=== PATIENT | female | born 1935 | race Caucasian/White ===

== ENCOUNTER 2024-04-05 17:06 | Inpatient (IN) | payer MEDICARE, OTHER ==
[~2024-04-05] VITALS: Ht 149.9 cm; Wt 49.9 kg
[2024-04-05 17:10] VITALS: BP 165/52; PULSE 96; RESP 40; TEMP 99; O2SAT 99
[2024-04-05 17:52] LABS: HEMATOCRIT 36.1 % (36-48); HEMOGLOBIN 11.8 g/dL (12.0-16.0); MEAN CORPUSCULAR HEMOGLOBIN 28 pg (27-31); MEAN CORPUSCULAR HGB CONC 33 g/dL (33-37); MEAN CORPUSCULAR VOLUME 85.9 fL (80-94); PLATELET COUNT (AUTO) 171 K/uL (140-450); WHITE BLOOD COUNT (AUTO) 17.7 K/uL (4.8-10.8)
[2024-04-05 18:05] LABS: ANION GAP 15.4 (8-16); CARBON DIOXIDE 23.9 mmol/L (21-32); CHLORIDE 96 mmol/L (98-107); CREATININE 1.4 mg/dL (0.6-1.3); GLUCOSE 305 mg/dL (74-106); POTASSIUM 3.3 mmol/L (3.5-5.1); SODIUM SERUM 132 mmol/L (136-145); UREA NITROGEN, BLOOD 34 mg/dL (7-18)
[2024-04-05 18:12] LABS: ALANINE AMINOTRANSFERASE 16 U/L (12-78); ALBUMIN 2.7 g/dL (3.4-5.0); ALKALINE PHOSPHATASE 111 U/L (50-136); ASPARTATE AMINOTRANSFERASE 32 U/L (15-37); BILIRUBIN,DIRECT 0.3 mg/dL (0.0-0.3); TOTAL BILIRUBIN 0.8 mg/dL (0.0-1.0); TOTAL PROTEIN, SERUM 7.9 g/dL (6.4-8.2)
[2024-04-05 18:13] LABS: LACTIC ACID 3.6 mmol/L (0.4-2.0)
[2024-04-05 18:20] LABS: FLU A ANTIGEN negative (NEGATIVE); FLU B ANTIGEN NEGATIVE (NEGATIVE); RSV NEGATIVE (NEGATIVE)
[2024-04-05 18:31] LABS: LYMPHOCYTES % (MANUAL) 6 % (20-46); MONOCYTES % (MANUAL) 6 % (5-12)
[2024-04-05 18:32] LABS: PLATELET ESTIMATE ADEQUATE
[2024-04-05 18:43] VITALS: PULSE 88; O2SAT 94
[2024-04-05] MEDS ORDERED: cefTRIAXone 1,000 MG VIAL ONE (19:15)
[2024-04-05] MEDS: AZITHROMYCIN 500 MG in DEXTROSE 5% 250 ML IV ONE (19:50)
[2024-04-05] MEDS ORDERED: AZITHROMYCIN 500 MG INJ VIAL IV ONE (19:53)
[2024-04-05] MEDS ORDERED: FUROSEMIDE 40 MG/4 ML VIAL IVP ONE (19:57)
[2024-04-05] MEDS: FUROSEMIDE 40 MG/4 ML VIAL IVP ONE (19:58)
[2024-04-05 20:24] VITALS: PULSE 74; O2SAT 98
[2024-04-05] MEDS ORDERED: ZOLPIDEM 5 MG TAB PO PRN (20:35)
[2024-04-05] MEDS ORDERED: ONDANSETRON 4 MG/2 ML VIAL IVP PRN (20:35)
[2024-04-05] MEDS ORDERED: AMLO1CAP PO (22:07)
[2024-04-05] MEDS ORDERED: METO25TE2 PO (22:07)
[2024-04-05] MEDS ORDERED: ATOR10TA PO (22:07)
[2024-04-05] MEDS ORDERED: LOSA25TA32 PO (22:07)
[2024-04-05] MEDS ORDERED: FURO-572 PO (22:07)
[2024-04-05] MEDS ORDERED: APIX5TAB PO (22:07)
[2024-04-05] MEDS ORDERED: MEMA10TA22 PO (22:07)
[2024-04-05 22:39] VITALS: PULSE 70
[2024-04-05 23:00] VITALS: BP 140/65; PULSE 70; RESP 26; RESP 28; TEMP 98.1; O2SAT 98
[2024-04-05 23:55] VITALS: PULSE 69
[2024-04-06] VITALS (8 sets, daily range): BP systolic 142–151; BP diastolic 46–74; PULSE 67–91; RESP 15–22; TEMP 98–98.5; O2SAT 95–100
[2024-04-06] MEDS: KCL 20 MEQ IN 100 mL PREMIX 100 ML IV ONE (00:56)
[2024-04-06 07:09] LABS: BASOPHILS % (AUTO) 0.1 % (0.0-2.0); EOSINOPHILS % (AUTO) 0.4 % (0.0-4.0); HEMATOCRIT 29.5 % (36-48); HEMOGLOBIN 9.8 g/dL (12.0-16.0); LYMPHOCYTES # (AUTO) 0.8 K/uL (2.5-16.5); LYMPHOCYTES % (AUTO) 7.1 % (20.5-51.1); MEAN CORPUSCULAR HEMOGLOBIN 29 pg (27-31); MEAN CORPUSCULAR HGB CONC 33 g/dL (33-37); MONOCYTES % (AUTO) 8.2 % (1.7-9.3); NEUTROPHILS % (AUTO) 84.2 % (42.2-75.2); PLATELET COUNT (AUTO) 133 K/uL (140-450); RED BLOOD CELL COUNT(AUTO) 3.43 MIL/uL (4.20-5.40); RED CELL DISTRIBUTION WIDTH 15.4 % (11.6-13.7); WHITE BLOOD COUNT (AUTO) 11.9 K/uL (4.8-10.8)
[2024-04-06 08:07] LABS: ALANINE AMINOTRANSFERASE 16 U/L (12-78); ALKALINE PHOSPHATASE 78 U/L (50-136); ANION GAP 12.2 (8-16); ASPARTATE AMINOTRANSFERASE 20 U/L (15-37); CALCIUM 8.4 mg/dL (8.5-10.1); CARBON DIOXIDE 26.2 mmol/L (21-32); CHLORIDE 101 mmol/L (98-107); CREATININE 1.1 mg/dL (0.6-1.3); GLUCOSE 146 mg/dL (74-106); POTASSIUM 3.4 mmol/L (3.5-5.1); SODIUM SERUM 136 mmol/L (136-145); TOTAL BILIRUBIN 0.6 mg/dL (0.0-1.0); TOTAL PROTEIN, SERUM 6.3 g/dL (6.4-8.2); UREA NITROGEN, BLOOD 35 mg/dL (7-18)
[2024-04-06] MEDS: DOCUSATE SODIUM 100 MG GELCAP PO SCH (10:36)
[2024-04-06] MEDS: PANTOPRAZOLE 40 MG INJ VIAL IVP SCH (10:37)
[2024-04-06] MEDS: FUROSEMIDE 20 MG/2 ML VIAL IVP SCH (11:46)
[2024-04-06] MEDS: LOSARTAN 25 MG TAB PO SCH (11:47)
[2024-04-06] MEDS: amLODIPine 5 MG TAB PO SCH (11:47)
[2024-04-06] MEDS: ATORVASTATIN 20 MG TAB PO SCH (11:47)
[2024-04-06] MEDS ORDERED: PIPERACILLIN/TAZOBACTAM 3.375 GM in DEXTROSE 5% 50 ML IV SCH ×3 (12:00)
[2024-04-06] MEDS: LEVOFLOXACIN 500 MG/D5W PREMIX 100 ML IV SCH (13:19)
[2024-04-06] MEDS ORDERED: ONDANSETRON 4 MG/2 ML VIAL IVP PRN (15:05)
[2024-04-06] MEDS ORDERED: ALUMINUM HYD/MAG/SIMETHICONE 30 ML UDC PO PRN (15:05)
[2024-04-06] MEDS ORDERED: NITROGLYCERIN 0.4 MG TAB SL PRN (15:05)
[2024-04-06] MEDS ORDERED: MORPHINE SULFATE 2 MG/ML SYR IVP PRN (15:05)
[2024-04-06] MEDS ORDERED: DEXTROSE 50% 50 ML SYR IVP PRN (15:15)
[2024-04-06 16:00] LABS: CHOL/HDL RATIO 1.7 (1-4.5)
[2024-04-06] MEDS: BLOOD GLUCOSE MONITORING 1 DEV DEV FS SCH (16:32)
[2024-04-06] MEDS: ASPIRIN 81 MG TAB.CHEW PO SCH (16:41)
[2024-04-06] MEDS: INSULIN LISPRO SLIDING SCALE 100 UNITS/ML VIAL SUBQ PRN (16:45)
[2024-04-06] MEDS: MEMANTINE 10 MG TAB PO SCH (21:13)
[2024-04-06] MEDS: APIXABAN 2.5 MG TAB PO SCH (21:17)
[2024-04-06] MEDS: ZOLPIDEM 5 MG TAB PO PRN (22:30)
[2024-04-07] VITALS (11 sets, daily range): BP systolic 144–159; BP diastolic 60–71; PULSE 62–86; RESP 15–20; TEMP 97–98.3; O2SAT 93–100
[2024-04-07 07:21] LABS: BASOPHILS % (AUTO) 0.1 % (0.0-2.0); EOSINOPHILS % (AUTO) 0.2 % (0.0-4.0); HEMATOCRIT 29.3 % (36-48); HEMOGLOBIN 9.7 g/dL (12.0-16.0); LYMPHOCYTES % (AUTO) 7.7 % (20.5-51.1); MEAN CORPUSCULAR HEMOGLOBIN 28 pg (27-31); MEAN CORPUSCULAR HGB CONC 33 g/dL (33-37); MEAN CORPUSCULAR VOLUME 84.8 fL (80-94); MONOCYTES % (AUTO) 7.6 % (1.7-9.3); NEUTROPHILS # (AUTO) 11.3 K/uL (1.8-7.7); NEUTROPHILS % (AUTO) 84.4 % (42.2-75.2); PLATELET COUNT (AUTO) 168 K/uL (140-450); RED BLOOD CELL COUNT(AUTO) 3.45 MIL/uL (4.20-5.40); RED CELL DISTRIBUTION WIDTH 15.6 % (11.6-13.7); WHITE BLOOD COUNT (AUTO) 13.3 K/uL (4.8-10.8)
[2024-04-07 07:46] LABS: ALANINE AMINOTRANSFERASE 36 U/L (12-78); ALKALINE PHOSPHATASE 88 U/L (50-136); ANION GAP 10.7 (8-16); ASPARTATE AMINOTRANSFERASE 55 U/L (15-37); CALCIUM 8.7 mg/dL (8.5-10.1); CARBON DIOXIDE 28.7 mmol/L (21-32); CHLORIDE 103 mmol/L (98-107); CREATININE 1.1 mg/dL (0.6-1.3); GLUCOSE 194 mg/dL (74-106); POTASSIUM 3.4 mmol/L (3.5-5.1); SODIUM SERUM 139 mmol/L (136-145); TOTAL BILIRUBIN 0.7 mg/dL (0.0-1.0); TOTAL PROTEIN, SERUM 6.6 g/dL (6.4-8.2); UREA NITROGEN, BLOOD 28 mg/dL (7-18)
[2024-04-07] MEDS ORDERED: LOSARTAN 25 MG TAB PO SCH (09:00)
[2024-04-07] MEDS: DOCUSATE SODIUM 100 MG GELCAP PO SCH (09:52)
[2024-04-07] MEDS ORDERED: NYSTATIN POW 100 MU/GM 15 GM BTL TP PRN (11:45)
[2024-04-07] MEDS: LEVOFLOXACIN 250 MG/D5 PREMIX 50 ML IV SCH (12:35)
[2024-04-07] MEDS: NYSTATIN POW 100 MU/GM 15 GM BTL TP SCH (13:00)
[2024-04-08] VITALS (12 sets, daily range): BP systolic 123–179; BP diastolic 57–77; PULSE 69–96; RESP 20–22; TEMP 97.1–98.7; O2SAT 95–99
[2024-04-08 06:47] LABS: BASOPHILS % (AUTO) 0.3 % (0.0-2.0); EOSINOPHILS % (AUTO) 0.2 % (0.0-4.0); HEMATOCRIT 32.8 % (36-48); HEMOGLOBIN 10.9 g/dL (12.0-16.0); LYMPHOCYTES # (AUTO) 0.8 K/uL (2.5-16.5); MEAN CORPUSCULAR HEMOGLOBIN 28 pg (27-31); MEAN CORPUSCULAR HGB CONC 33 g/dL (33-37); MEAN CORPUSCULAR VOLUME 85.7 fL (80-94); MONOCYTES # (AUTO) 0.9 K/uL (0.8-1.0); MONOCYTES % (AUTO) 6.5 % (1.7-9.3); NEUTROPHILS # (AUTO) 11.9 K/uL (1.8-7.7); PLATELET COUNT (AUTO) 215 K/uL (140-450); RED BLOOD CELL COUNT(AUTO) 3.83 MIL/uL (4.20-5.40); RED CELL DISTRIBUTION WIDTH 15.8 % (11.6-13.7); WHITE BLOOD COUNT (AUTO) 13.7 K/uL (4.8-10.8)
[2024-04-08 07:58] LABS: ALANINE AMINOTRANSFERASE 57 U/L (12-78); ALBUMIN 2.1 g/dL (3.4-5.0); ALKALINE PHOSPHATASE 100 U/L (50-136); ANION GAP 14.7 (8-16); ASPARTATE AMINOTRANSFERASE 70 U/L (15-37); CALCIUM 9.2 mg/dL (8.5-10.1); CARBON DIOXIDE 28.1 mmol/L (21-32); CHLORIDE 104 mmol/L (98-107); CREATININE 0.8 mg/dL (0.6-1.3); GLUCOSE 203 mg/dL (74-106); POTASSIUM 3.8 mmol/L (3.5-5.1); SODIUM SERUM 143 mmol/L (136-145); TOTAL BILIRUBIN 0.7 mg/dL (0.0-1.0); TOTAL PROTEIN, SERUM 7.2 g/dL (6.4-8.2); UREA NITROGEN, BLOOD 25 mg/dL (7-18)
[2024-04-08] MEDS: hydrALAZINE 10 MG TAB PO SCH (14:43)
[2024-04-08] MEDS: ALBUTEROL SULFATE/IPRATROPIU 3 ML SOL IH ONE (19:36)
[2024-04-08] MEDS: hydrALAZINE 20 MG/ML VIAL IVP PRN (23:50)
[2024-04-09] VITALS (13 sets, daily range): BP systolic 140–155; BP diastolic 47–69; PULSE 73–87; RESP 19–24; TEMP 97.1–99.1; O2SAT 6–98
[2024-04-09 06:18] LABS: BASOPHILS % (AUTO) 0.4 % (0.0-2.0); EOSINOPHILS # (AUTO) 0.1 K/uL (0-0.4); EOSINOPHILS % (AUTO) 0.6 % (0.0-4.0); HEMATOCRIT 30.2 % (36-48); HEMOGLOBIN 10.1 g/dL (12.0-16.0); MEAN CORPUSCULAR HEMOGLOBIN 28 pg (27-31); MEAN CORPUSCULAR HGB CONC 33 g/dL (33-37); MEAN CORPUSCULAR VOLUME 85.1 fL (80-94); MONOCYTES # (AUTO) 0.9 K/uL (0.8-1.0); MONOCYTES % (AUTO) 7.2 % (1.7-9.3); NEUTROPHILS % (AUTO) 83.8 % (42.2-75.2); PLATELET COUNT (AUTO) 234 K/uL (140-450); RED BLOOD CELL COUNT(AUTO) 3.55 MIL/uL (4.20-5.40); RED CELL DISTRIBUTION WIDTH 15.2 % (11.6-13.7)
[2024-04-09 06:43] LABS: ALANINE AMINOTRANSFERASE 49 U/L (12-78); ALKALINE PHOSPHATASE 87 U/L (50-136); ANION GAP 9.9 (8-16); ASPARTATE AMINOTRANSFERASE 53 U/L (15-37); CARBON DIOXIDE 30.6 mmol/L (21-32); CHLORIDE 105 mmol/L (98-107); GLUCOSE 204 mg/dL (74-106); POTASSIUM 3.5 mmol/L (3.5-5.1); SODIUM SERUM 142 mmol/L (136-145); TOTAL BILIRUBIN 0.6 mg/dL (0.0-1.0); TOTAL PROTEIN, SERUM 6.7 g/dL (6.4-8.2); UREA NITROGEN, BLOOD 36 mg/dL (7-18)
[2024-04-09] MEDS: ALBUTEROL SULFATE/IPRATROPIU 3 ML SOL IH SCH (07:46)
[2024-04-10] VITALS (13 sets, daily range): BP systolic 138–156; BP diastolic 51–82; PULSE 68–86; RESP 18–20; TEMP 97.5–98.3; O2SAT 88–98
[2024-04-10 06:31] LABS: BASOPHILS % (AUTO) 0.3 % (0.0-2.0); EOSINOPHILS # (AUTO) 0.2 K/uL (0-0.4); EOSINOPHILS % (AUTO) 1.6 % (0.0-4.0); HEMATOCRIT 30.2 % (36-48); HEMOGLOBIN 9.7 g/dL (12.0-16.0); LYMPHOCYTES # (AUTO) 0.8 K/uL (2.5-16.5); LYMPHOCYTES % (AUTO) 6.5 % (20.5-51.1); MEAN CORPUSCULAR HEMOGLOBIN 28 pg (27-31); MEAN CORPUSCULAR HGB CONC 32 g/dL (33-37); MEAN CORPUSCULAR VOLUME 86.5 fL (80-94); MONOCYTES # (AUTO) 0.6 K/uL (0.8-1.0); NEUTROPHILS # (AUTO) 10.9 K/uL (1.8-7.7); NEUTROPHILS % (AUTO) 86.6 % (42.2-75.2); PLATELET COUNT (AUTO) 239 K/uL (140-450); RED BLOOD CELL COUNT(AUTO) 3.49 MIL/uL (4.20-5.40); RED CELL DISTRIBUTION WIDTH 15.6 % (11.6-13.7); WHITE BLOOD COUNT (AUTO) 12.5 K/uL (4.8-10.8)
[2024-04-10 07:03] LABS: ALANINE AMINOTRANSFERASE 62 U/L (12-78); ALKALINE PHOSPHATASE 80 U/L (50-136); ANION GAP 10.4 (8-16); ASPARTATE AMINOTRANSFERASE 57 U/L (15-37); CARBON DIOXIDE 31.3 mmol/L (21-32); CHLORIDE 105 mmol/L (98-107); CREATININE 1.1 mg/dL (0.6-1.3); GLUCOSE 193 mg/dL (74-106); POTASSIUM 3.7 mmol/L (3.5-5.1); SODIUM SERUM 143 mmol/L (136-145); TOTAL BILIRUBIN 0.6 mg/dL (0.0-1.0); TOTAL PROTEIN, SERUM 6.8 g/dL (6.4-8.2); UREA NITROGEN, BLOOD 40 mg/dL (7-18)
[2024-04-11] VITALS (15 sets, daily range): BP systolic 122–150; BP diastolic 52–82; PULSE 68–87; RESP 20–24; TEMP 97.6–99; O2SAT 88–99
[2024-04-11] MEDS: ALBUTEROL SULFATE/IPRATROPIU 3 ML SOL IH PRN (00:18)
[2024-04-11 07:04] LABS: BASOPHILS % (AUTO) 0.3 % (0.0-2.0); EOSINOPHILS # (AUTO) 0.1 K/uL (0-0.4); EOSINOPHILS % (AUTO) 1.1 % (0.0-4.0); HEMOGLOBIN 9.9 g/dL (12.0-16.0); LYMPHOCYTES # (AUTO) 0.8 K/uL (2.5-16.5); LYMPHOCYTES % (AUTO) 7.6 % (20.5-51.1); MEAN CORPUSCULAR HEMOGLOBIN 29 pg (27-31); MEAN CORPUSCULAR HGB CONC 33 g/dL (33-37); MEAN CORPUSCULAR VOLUME 86.5 fL (80-94); MONOCYTES # (AUTO) 0.4 K/uL (0.8-1.0); MONOCYTES % (AUTO) 4.1 % (1.7-9.3); NEUTROPHILS # (AUTO) 9.3 K/uL (1.8-7.7); NEUTROPHILS % (AUTO) 86.9 % (42.2-75.2); PLATELET COUNT (AUTO) 238 K/uL (140-450); RED BLOOD CELL COUNT(AUTO) 3.47 MIL/uL (4.20-5.40); RED CELL DISTRIBUTION WIDTH 15.4 % (11.6-13.7); WHITE BLOOD COUNT (AUTO) 10.7 K/uL (4.8-10.8)
[2024-04-11 07:16] LABS: ALANINE AMINOTRANSFERASE 47 U/L (12-78); ALBUMIN 1.9 g/dL (3.4-5.0); ALKALINE PHOSPHATASE 68 U/L (50-136); ANION GAP 10.8 (8-16); ASPARTATE AMINOTRANSFERASE 30 U/L (15-37); CALCIUM 9.1 mg/dL (8.5-10.1); CARBON DIOXIDE 30.5 mmol/L (21-32); CHLORIDE 105 mmol/L (98-107); CREATININE 0.9 mg/dL (0.6-1.3); GLUCOSE 155 mg/dL (74-106); POTASSIUM 4.3 mmol/L (3.5-5.1); SODIUM SERUM 142 mmol/L (136-145); TOTAL BILIRUBIN 0.6 mg/dL (0.0-1.0); TOTAL PROTEIN, SERUM 6.6 g/dL (6.4-8.2); UREA NITROGEN, BLOOD 38 mg/dL (7-18)
[2024-04-11] MEDS: LOSARTAN 50 MG TAB PO SCH (09:33)
[2024-04-11 19:13] LABS: APPEARANCE,URINE CLOUDY (CLEAR); BILIRUBIN,URINE NEGATIVE (NEGATIVE); BLOOD, URINE NEGATIVE (NEGATIVE); COLOR,URINE YELLOW (YELLOW); LEUKOCYTE ESTERASE ,URINE NEGATIVE (NEGATIVE); NITRITE, URINE NEGATIVE (NEGATIVE); PROTEIN,URINE NEGATIVE (NEGATIVE); UGLUCOSE NEGATIVE (NEGATIVE); UROBILINOGEN,URINE 0.2 EU/dL (0.2 - 1)
[2024-04-12] VITALS (13 sets, daily range): BP systolic 129–156; BP diastolic 43–85; PULSE 58–75; RESP 19–26; TEMP 97.1–98.8; O2SAT 94–98
[2024-04-12 06:56] LABS: BASOPHILS % (AUTO) 0.4 % (0.0-2.0); EOSINOPHILS # (AUTO) 0.2 K/uL (0-0.4); EOSINOPHILS % (AUTO) 2.3 % (0.0-4.0); HEMATOCRIT 27.7 % (36-48); HEMOGLOBIN 9.2 g/dL (12.0-16.0); LYMPHOCYTES # (AUTO) 0.9 K/uL (2.5-16.5); LYMPHOCYTES % (AUTO) 9.7 % (20.5-51.1); MEAN CORPUSCULAR HEMOGLOBIN 28 pg (27-31); MEAN CORPUSCULAR HGB CONC 33 g/dL (33-37); MONOCYTES # (AUTO) 0.4 K/uL (0.8-1.0); MONOCYTES % (AUTO) 4.2 % (1.7-9.3); NEUTROPHILS # (AUTO) 7.3 K/uL (1.8-7.7); NEUTROPHILS % (AUTO) 83.4 % (42.2-75.2); PLATELET COUNT (AUTO) 229 K/uL (140-450); RED BLOOD CELL COUNT(AUTO) 3.26 MIL/uL (4.20-5.40); RED CELL DISTRIBUTION WIDTH 15.8 % (11.6-13.7); WHITE BLOOD COUNT (AUTO) 8.8 K/uL (4.8-10.8)
[2024-04-12 07:53] LABS: ALANINE AMINOTRANSFERASE 39 U/L (12-78); ALBUMIN 1.9 g/dL (3.4-5.0); ALKALINE PHOSPHATASE 60 U/L (50-136); ANION GAP 11.8 (8-16); ASPARTATE AMINOTRANSFERASE 29 U/L (15-37); CALCIUM 8.9 mg/dL (8.5-10.1); CARBON DIOXIDE 29.6 mmol/L (21-32); CHLORIDE 105 mmol/L (98-107); CREATININE 0.9 mg/dL (0.6-1.3); GLUCOSE 140 mg/dL (74-106); POTASSIUM 4.4 mmol/L (3.5-5.1); SODIUM SERUM 142 mmol/L (136-145); TOTAL BILIRUBIN 0.4 mg/dL (0.0-1.0); TOTAL PROTEIN, SERUM 6.5 g/dL (6.4-8.2); UREA NITROGEN, BLOOD 46 mg/dL (7-18)
[2024-04-12] MEDS: LEVOFLOXACIN 250 MG/D5 PREMIX 50 ML IV SCH (20:58)
[2024-04-13] VITALS (13 sets, daily range): BP systolic 140–158; BP diastolic 48–99; PULSE 45–69; RESP 17–20; TEMP 97.2–98.6; O2SAT 95–99
[2024-04-13 06:35] LABS: BASOPHILS # (AUTO) 0.1 K/uL (0.00-0.22); BASOPHILS % (AUTO) 0.6 % (0.0-2.0); EOSINOPHILS # (AUTO) 0.2 K/uL (0-0.4); EOSINOPHILS % (AUTO) 2.1 % (0.0-4.0); HEMATOCRIT 27.6 % (36-48); HEMOGLOBIN 9.3 g/dL (12.0-16.0); LYMPHOCYTES % (AUTO) 10.8 % (20.5-51.1); MEAN CORPUSCULAR HEMOGLOBIN 29 pg (27-31); MEAN CORPUSCULAR HGB CONC 34 g/dL (33-37); MEAN CORPUSCULAR VOLUME 85.2 fL (80-94); MONOCYTES # (AUTO) 0.4 K/uL (0.8-1.0); MONOCYTES % (AUTO) 4.9 % (1.7-9.3); NEUTROPHILS # (AUTO) 7.5 K/uL (1.8-7.7); NEUTROPHILS % (AUTO) 81.6 % (42.2-75.2); PLATELET COUNT (AUTO) 255 K/uL (140-450); RED BLOOD CELL COUNT(AUTO) 3.24 MIL/uL (4.20-5.40); RED CELL DISTRIBUTION WIDTH 15.7 % (11.6-13.7); WHITE BLOOD COUNT (AUTO) 9.1 K/uL (4.8-10.8)
[2024-04-13 06:48] LABS: ALANINE AMINOTRANSFERASE 45 U/L (12-78); ALBUMIN 2.1 g/dL (3.4-5.0); ALKALINE PHOSPHATASE 60 U/L (50-136); ANION GAP 8.1 (8-16); ASPARTATE AMINOTRANSFERASE 55 U/L (15-37); CALCIUM 8.9 mg/dL (8.5-10.1); CARBON DIOXIDE 33.7 mmol/L (21-32); CHLORIDE 102 mmol/L (98-107); CREATININE 1.1 mg/dL (0.6-1.3); GLUCOSE 104 mg/dL (74-106); POTASSIUM 4.8 mmol/L (3.5-5.1); SODIUM SERUM 139 mmol/L (136-145); TOTAL BILIRUBIN 0.5 mg/dL (0.0-1.0); TOTAL PROTEIN, SERUM 6.5 g/dL (6.4-8.2); UREA NITROGEN, BLOOD 47 mg/dL (7-18)
[2024-04-14] VITALS (11 sets, daily range): BP systolic 117–166; BP diastolic 45–79; PULSE 53–71; RESP 18–25; TEMP 97.5–98.9; O2SAT 92–99
[2024-04-14 06:39] LABS: BASOPHILS # (AUTO) 0.1 K/uL (0.00-0.22); BASOPHILS % (AUTO) 0.6 % (0.0-2.0); EOSINOPHILS # (AUTO) 0.1 K/uL (0-0.4); EOSINOPHILS % (AUTO) 1.2 % (0.0-4.0); HEMATOCRIT 31.9 % (36-48); HEMOGLOBIN 10.4 g/dL (12.0-16.0); LYMPHOCYTES # (AUTO) 1.1 K/uL (2.5-16.5); LYMPHOCYTES % (AUTO) 10.9 % (20.5-51.1); MEAN CORPUSCULAR HEMOGLOBIN 28 pg (27-31); MEAN CORPUSCULAR HGB CONC 33 g/dL (33-37); MEAN CORPUSCULAR VOLUME 86.1 fL (80-94); MONOCYTES # (AUTO) 0.6 K/uL (0.8-1.0); MONOCYTES % (AUTO) 5.8 % (1.7-9.3); NEUTROPHILS # (AUTO) 8.3 K/uL (1.8-7.7); NEUTROPHILS % (AUTO) 81.5 % (42.2-75.2); PLATELET COUNT (AUTO) 262 K/uL (140-450); RED CELL DISTRIBUTION WIDTH 15.4 % (11.6-13.7); WHITE BLOOD COUNT (AUTO) 10.2 K/uL (4.8-10.8)
[2024-04-14 06:58] LABS: ALANINE AMINOTRANSFERASE 46 U/L (12-78); ALBUMIN 2.3 g/dL (3.4-5.0); ALKALINE PHOSPHATASE 63 U/L (50-136); ANION GAP 8.5 (8-16); ASPARTATE AMINOTRANSFERASE 55 U/L (15-37); CALCIUM 9.1 mg/dL (8.5-10.1); CARBON DIOXIDE 33.8 mmol/L (21-32); CHLORIDE 101 mmol/L (98-107); GLUCOSE 109 mg/dL (74-106); POTASSIUM 4.3 mmol/L (3.5-5.1); SODIUM SERUM 139 mmol/L (136-145); TOTAL BILIRUBIN 0.5 mg/dL (0.0-1.0); UREA NITROGEN, BLOOD 45 mg/dL (7-18)
[2024-04-15] VITALS (13 sets, daily range): BP systolic 110–135; BP diastolic 45–73; PULSE 53–94; RESP 18–25; TEMP 97.3–98.1; O2SAT 92–99
[2024-04-15 06:52] LABS: BASOPHILS # (AUTO) 0.1 K/uL (0.00-0.22); EOSINOPHILS # (AUTO) 0.2 K/uL (0-0.4); EOSINOPHILS % (AUTO) 1.9 % (0.0-4.0); HEMATOCRIT 28.3 % (36-48); HEMOGLOBIN 9.3 g/dL (12.0-16.0); LYMPHOCYTES # (AUTO) 1.3 K/uL (2.5-16.5); LYMPHOCYTES % (AUTO) 15.1 % (20.5-51.1); MEAN CORPUSCULAR HEMOGLOBIN 28 pg (27-31); MEAN CORPUSCULAR HGB CONC 33 g/dL (33-37); MEAN CORPUSCULAR VOLUME 85.6 fL (80-94); MONOCYTES # (AUTO) 0.6 K/uL (0.8-1.0); MONOCYTES % (AUTO) 7.1 % (1.7-9.3); NEUTROPHILS # (AUTO) 6.3 K/uL (1.8-7.7); NEUTROPHILS % (AUTO) 74.9 % (42.2-75.2); PLATELET COUNT (AUTO) 264 K/uL (140-450); RED BLOOD CELL COUNT(AUTO) 3.31 MIL/uL (4.20-5.40); WHITE BLOOD COUNT (AUTO) 8.4 K/uL (4.8-10.8)
[2024-04-15 07:09] LABS: ALANINE AMINOTRANSFERASE 48 U/L (12-78); ALBUMIN 2.2 g/dL (3.4-5.0); ALKALINE PHOSPHATASE 56 U/L (50-136); ANION GAP 9.2 (8-16); ASPARTATE AMINOTRANSFERASE 52 U/L (15-37); CALCIUM 8.6 mg/dL (8.5-10.1); CARBON DIOXIDE 33.2 mmol/L (21-32); CHLORIDE 100 mmol/L (98-107); CREATININE 0.9 mg/dL (0.6-1.3); GLUCOSE 96 mg/dL (74-106); POTASSIUM 4.4 mmol/L (3.5-5.1); SODIUM SERUM 138 mmol/L (136-145); TOTAL BILIRUBIN 0.5 mg/dL (0.0-1.0); TOTAL PROTEIN, SERUM 6.3 g/dL (6.4-8.2); UREA NITROGEN, BLOOD 43 mg/dL (7-18)
[2024-04-16] VITALS (14 sets, daily range): BP systolic 105–148; BP diastolic 44–61; PULSE 50–68; RESP 16–25; TEMP 97–98.4; O2SAT 94–99
[2024-04-16 06:42] LABS: WHITE BLOOD COUNT (AUTO) 7.5 K/uL (4.8-10.8)
[2024-04-16 06:43] LABS: HEMATOCRIT 27.7 % (36-48); HEMOGLOBIN 9.2 g/dL (12.0-16.0); MEAN CORPUSCULAR HEMOGLOBIN 28 pg (27-31); MEAN CORPUSCULAR HGB CONC 33 g/dL (33-37); MEAN CORPUSCULAR VOLUME 84.8 fL (80-94); NEUTROPHILS % (AUTO) 72.5 % (42.2-75.2); PLATELET COUNT (AUTO) 261 K/uL (140-450); RED BLOOD CELL COUNT(AUTO) 3.27 MIL/uL (4.20-5.40)
[2024-04-16 06:44] LABS: BASOPHILS # (AUTO) 0.1 K/uL (0.00-0.22); BASOPHILS % (AUTO) 0.9 % (0.0-2.0); EOSINOPHILS # (AUTO) 0.2 K/uL (0-0.4); EOSINOPHILS % (AUTO) 2.3 % (0.0-4.0); LYMPHOCYTES # (AUTO) 1.2 K/uL (2.5-16.5); LYMPHOCYTES % (AUTO) 16.4 % (20.5-51.1); MONOCYTES # (AUTO) 0.6 K/uL (0.8-1.0); MONOCYTES % (AUTO) 7.9 % (1.7-9.3); NEUTROPHILS # (AUTO) 5.4 K/uL (1.8-7.7)
[2024-04-16 07:56] LABS: ANION GAP 9.3 (8-16); CALCIUM 8.7 mg/dL (8.5-10.1); CARBON DIOXIDE 31.9 mmol/L (21-32); CHLORIDE 102 mmol/L (98-107); GLUCOSE 96 mg/dL (74-106); POTASSIUM 4.2 mmol/L (3.5-5.1); SODIUM SERUM 139 mmol/L (136-145); UREA NITROGEN, BLOOD 40 mg/dL (7-18)
[2024-04-16 07:57] LABS: ALANINE AMINOTRANSFERASE 43 U/L (12-78); ALBUMIN 2.2 g/dL (3.4-5.0); ALKALINE PHOSPHATASE 53 U/L (50-136); ASPARTATE AMINOTRANSFERASE 41 U/L (15-37); CREATININE 1.2 mg/dL (0.6-1.3); TOTAL BILIRUBIN 0.4 mg/dL (0.0-1.0); TOTAL PROTEIN, SERUM 6.3 g/dL (6.4-8.2)
[2024-04-16] MEDS: APIXABAN 2.5 MG TAB PO SCH (22:22)
[2024-04-17] VITALS (12 sets, daily range): BP systolic 122–135; BP diastolic 44–80; PULSE 44–68; RESP 16–25; TEMP 96.9–98.5; O2SAT 94–100
[2024-04-17 06:46] LABS: BASOPHILS # (AUTO) 0.1 K/uL (0.00-0.22); BASOPHILS % (AUTO) 1.1 % (0.0-2.0); EOSINOPHILS # (AUTO) 0.2 K/uL (0-0.4); EOSINOPHILS % (AUTO) 2.4 % (0.0-4.0); HEMATOCRIT 28.7 % (36-48); HEMOGLOBIN 9.4 g/dL (12.0-16.0); LYMPHOCYTES # (AUTO) 1.3 K/uL (2.5-16.5); LYMPHOCYTES % (AUTO) 15.6 % (20.5-51.1); MEAN CORPUSCULAR HEMOGLOBIN 28 pg (27-31); MEAN CORPUSCULAR HGB CONC 33 g/dL (33-37); MEAN CORPUSCULAR VOLUME 86.5 fL (80-94); MONOCYTES # (AUTO) 0.7 K/uL (0.8-1.0); MONOCYTES % (AUTO) 8.1 % (1.7-9.3); NEUTROPHILS # (AUTO) 5.9 K/uL (1.8-7.7); NEUTROPHILS % (AUTO) 72.8 % (42.2-75.2); PLATELET COUNT (AUTO) 262 K/uL (140-450); RED BLOOD CELL COUNT(AUTO) 3.31 MIL/uL (4.20-5.40); RED CELL DISTRIBUTION WIDTH 15.6 % (11.6-13.7); WHITE BLOOD COUNT (AUTO) 8.2 K/uL (4.8-10.8)
[2024-04-17 07:03] LABS: ANION GAP 7.2 (8-16); CALCIUM 8.5 mg/dL (8.5-10.1); CARBON DIOXIDE 33.5 mmol/L (21-32); CHLORIDE 101 mmol/L (98-107); CREATININE 1.3 mg/dL (0.6-1.3); GLUCOSE 81 mg/dL (74-106); POTASSIUM 4.7 mmol/L (3.5-5.1); SODIUM SERUM 137 mmol/L (136-145); UREA NITROGEN, BLOOD 43 mg/dL (7-18)
[2024-04-18] VITALS (15 sets, daily range): BP systolic 123–144; BP diastolic 41–54; PULSE 51–64; RESP 16–22; TEMP 97.1–98.2; O2SAT 93–99
[2024-04-19] VITALS (12 sets, daily range): BP systolic 119–155; BP diastolic 38–57; PULSE 48–60; RESP 17–20; TEMP 97.4–98; O2SAT 95–99
[2024-04-19] MEDS: FUROSEMIDE 40 MG TAB PO SCH (09:21)
[2024-04-20 04:00] VITALS: BP 136/46; PULSE 60; RESP 19; TEMP 97.6; O2SAT 100
[2024-04-20 08:00] VITALS: PULSE 56; PULSE 58; RESP 17; RESP 19; O2SAT 96; O2SAT 97
[2024-04-20 08:07] VITALS: O2SAT 96
[2024-04-20] MEDS ORDERED: FURO-570 PO (10:23)
[2024-04-20] MEDS ORDERED: APIX2.5 PO (10:23)
[2024-04-20] MEDS ORDERED: POTA10TA70 PO (10:23)
[2024-04-20] MEDS ORDERED: LEVO-481 PO (10:23)
[2024-04-20 12:00] VITALS: BP 128/74; PULSE 66; RESP 19; TEMP 98.2; O2SAT 100
[2024-04-20 12:33] VITALS: BP 128/74; PULSE 66; RESP 19; TEMP 98.2
== END 2024-04-20 13:00 | disposition home or self-care (01) | DRG 871 ==
LOC: MED 17:06 → MTU 20:40
PROVIDERS: ADMIT Student in an Organized Health Care Education/Training Program; ATTEND Student in an Organized Health Care Education/Training Program
PROC: 5A0935A Assistance with Respiratory Ventilation, Less than 24 Consecutive Hours, High Flow/Velocity Cannula (ICD-10-PCS; principal; 2024-04-05)
PROC: 5A09457 Assistance with Respiratory Ventilation, 24-96 Consecutive Hours, Continuous Positive Airway Pressure (ICD-10-PCS; 2024-04-05)
PROC: 5A0935A Assistance with Respiratory Ventilation, Less than 24 Consecutive Hours, High Flow/Velocity Cannula (ICD-10-PCS; 2024-04-12)
PROC: 5A0935A Assistance with Respiratory Ventilation, Less than 24 Consecutive Hours, High Flow/Velocity Cannula (ICD-10-PCS; 2024-04-13)
PROC: 5A0935A Assistance with Respiratory Ventilation, Less than 24 Consecutive Hours, High Flow/Velocity Cannula (ICD-10-PCS; 2024-04-14)
PROC: 5A0935A Assistance with Respiratory Ventilation, Less than 24 Consecutive Hours, High Flow/Velocity Cannula (ICD-10-PCS; 2024-04-15)
PROC: 5A0935A Assistance with Respiratory Ventilation, Less than 24 Consecutive Hours, High Flow/Velocity Cannula (ICD-10-PCS; 2024-04-16)
PROC: 5A0935A Assistance with Respiratory Ventilation, Less than 24 Consecutive Hours, High Flow/Velocity Cannula (ICD-10-PCS; 2024-04-17)
DX: A41.9 Sepsis, unspecified organism (principal); I21.A1 Myocardial infarction type 2; J18.9 Pneumonia, unspecified organism; J96.01 Acute respiratory failure with hypoxia; N17.0 Acute kidney failure with tubular necrosis; I50.43 Acute on chronic combined systolic (congestive) and diastolic (congestive) heart failure; G93.40 Encephalopathy, unspecified; I16.9 Hypertensive crisis, unspecified; I48.20 Chronic atrial fibrillation, unspecified; R65.20 Severe sepsis without septic shock; E87.6 Hypokalemia; Z20.822 Contact with and (suspected) exposure to COVID-19; E11.649 Type 2 diabetes mellitus with hypoglycemia without coma; I11.0 Hypertensive heart disease with heart failure; Z79.01 Long term (current) use of anticoagulants
CPT/HCPCS: 36415; 71045; 80048; 80053; 80076; 81003; 82948; 83036; 83605; 83721; 83880; 84484; 85025; 85379; 87040; 87420; 93005; 94640; 94660; 96365; 96375; 97110; 97116; 97163-GP; 97530; 99291; C9113; J0360; J0456; J0696; J1815; J1940; J1956; J2543; J3480; J7060